=== PATIENT | female | born 2000 | race Caucasian/White ===

== ENCOUNTER 2023-11-13 20:28 | Emergency (ER) | payer BC, MEDICAID ==
--- NOTE | 2023-11-13 20:37 | ERPHSYRPT ---
- History of Present Illness Time Seen by Provider: 11/13/23 20:37 Source: patient, family Exam Limitations: no limitations Physician History: pt has fever today with aches and feeling weak and has cough but not SObreath no CP. No vag DC no urinary symptoms or abd pain. . chest clear ht reg without M . Abd soft nontender without peritoneal signs or masses. No N or V, but not drinking like she should and a little dehydrated feeling per pt. family member / friend is here as an independent source of the hx. discussed risk/benefit of testing with pt/family and she wishes to proceed with covid, rsv, strep, Flu testing and IVF. these are ordered. results discussed. discussed risk/benefit of tamiflu with family and pt and they wish to proced. Timing/Duration: today Severity: moderate Associated Symptoms: cough, loss of appetite Allergies/Adverse Reactions: No Known Drug Allergies Allergy (Unverified 11/13/23 20:59) Hx Tetanus, Diphtheria Vaccination/Date Given: Yes - Review of Systems Constitutional: Fever, No Chills Eyes: No Symptoms Ears, Nose, & Throat: No Symptoms Respiratory: Cough, No Dyspnea Cardiac: No Chest Pain, No Edema, No Syncope Abdominal/Gastrointestinal: No Abdominal Pain, No Nausea, No Vomiting, No Diarrhea Genitourinary Symptoms: No Dysuria Musculoskeletal: No Back Pain, No Neck Pain Skin: No Rash Neurological: No Dizziness, No Focal Weakness, No Sensory Changes Psychological: No Symptoms Endocrine: No Symptoms Hematologic/Lymphatic: No Symptoms Immunological/Allergic: No Symptoms All Other Systems: Reviewed and Negative - Past Medical History Pertinent Past Medical History: No - Past Surgical History Past Surgical History: No - Social History Smoking Status: Never smoker Exposure to second hand smoke: No Drug Use: none Patient Lives Alone: No - Nursing Vital Signs Nursing Vital Signs: Initial Vital Signs Temperature 102.0 F 11/13/23 20:28 Pulse Rate 125 H 11/13/23 20:28 Respiratory Rate 20 11/13/23 20:28 Blood Pressure 119/62 11/13/23 20:28 O2 Sat by Pulse Oximetry 95 11/13/23 20:28 Pain Scale Pain Intensity 5 - Physical Exam General Appearance: no apparent distress, alert Eye Exam: PERRL/EOMI, eyes nml inspection Ears, Nose, Throat Exam: normal ENT inspection, TMs normal, pharynx normal, moist mucous membranes Neck Exam: normal inspection, non-tender, supple, full range of motion Respiratory Exam: normal breath sounds, lungs clear, No respiratory distress Cardiovascular Exam: regular rate/rhythm, normal heart sounds, normal peripheral pulses Gastrointestinal/Abdomen Exam: soft, normal bowel sounds, No tenderness, No distention, No mass, No guarding Pelvic Exam: deferred Rectal Exam: deferred Back Exam: normal inspection, normal range of motion, No CVA tenderness, No vertebral tenderness Extremity Exam: normal inspection, normal range of motion, pelvis stable Neurologic Exam: alert, oriented x 3, cooperative, normal mood/affect, nml cerebellar function, nml station & gait, sensation nml, No motor deficits Skin Exam: normal color, warm, dry, No rash Lymphatic Exam: No adenopathy SpO2 Interpretation: normal SpO2: 95 O2 Delivery: Room Air - Course Nursing assessment & vital signs reviewed: Yes Ordered Tests: Active Orders 24 hr Category Date Time Status IV Insertion STAT Care 11/13/23 21:04 Active Medication Summary Discontinued Medications Generic Name Dose Route Start Last Admin Trade Name Ruth PRN Reason Stop Dose Admin Sodium Chloride 1,000 mls @ 999 mls/hr 11/13/23 21:04 11/13/23 22:28 Sodium Chloride 0.9% 1000 Ml IV 11/13/23 22:04 Infused .Q1H1M STA Infusion Sodium Chloride Confirm 11/13/23 21:17 Sodium Chloride 0.9% 1000 Ml Administered 11/13/23 21:18 Dose 1,000 mls @ ud .ROUTE .STK-MED ONE Oseltamivir Phosphate 75 mg 11/13/23 22:21 11/13/23 22:28 Oseltamivir 75 Mg Cap PO 11/13/23 22:22 75 mg STAT ONE Administration Oseltamivir Phosphate Confirm 11/13/23 22:26 Oseltamivir 75 Mg Cap Administered 11/13/23 22:27 Dose 75 mg PO .STK-MED ONE Lab/Rad Data: Laboratory Results 11/13/23 Range/Units 21:20 Influenza Type A Ag POSITIVE (NEGATIVE) Influenza Type B Ag NEGATIVE (NEGATIVE) RSV (PCR) NEGATIVE (NEGATIVE) SARS-CoV-2 (PCR) NEGATIVE (NEGATIVE) Group A Strep Antibody NOT DETECTED (NEGATIVE) - Progress Progress: improved, re-examined Progress Note: 11/13/23 23:49 pt feels well enough to go home and prefers that rather than obs in hospital and has the capacity to make this choice. Counseled pt/family regarding: lab results, diagnosis, need for follow-up Medical Desision Making - Independent Historian Additional History obtained from: Relative/friend - Discussion of managment Reviewed:: Test results, Need for additional workup Agreed on:: Treatment plan, need for follow-up - Diagnostic Testing Diagnostic test were ordered, analyzed, and reviewed by me: Yes Radiological Interpretation: Reviewed by me - Risk of complications The pt has a mod risk of morbidity or mortality based on: Need for prescription drug management The pt has a high risk of morbidity or mortality based on: Decision regarding hospitilization or escalation of hosp level of care - Departure Departure Disposition: Home Clinical Impression: Influenza A Condition: Good Critical Care Time: No Referrals: BC ESCAMILLA, SET UP OPERATOR [Primary Care Provider] - Follow up/PCP as directed Instructions: Flu, Adult (DC), Flu, Adult ED Additional Instructions: followup with your DrBeatriz this week and also if your time off needs to be extended. return meantime if vomiting, short of breath, trouble swallowing, dizzy, or any other concerns. Prescriptions: Oseltamivir 75 mg [Tamiflu 75MG Capsule] 75 mg PO BID #10 cap
[2023-11-13 20:59] VITALS: TEMP 102
[2023-11-13] MEDS ORDERED: Sodium Chloride 0.9% 1000 ML 1,000 ML IV STA (21:04)
[2023-11-13] MEDS ORDERED: Sodium Chloride 0.9% 1000 ML 1,000 ML ONE (21:17)
[2023-11-13 21:48] LABS: Group A Strep NOT DETECTED (NEGATIVE)
[2023-11-13 21:59] LABS: INFLUENZA B NEGATIVE (NEGATIVE); RESPIRATORY SYNCTIAL VIRUS NEGATIVE (NEGATIVE); SARS-CoV-2 Xpert Express NEGATIVE (NEGATIVE)
[2023-11-13 22:01] LABS: INFLUENZA A POSITIVE (NEGATIVE)
[2023-11-13] MEDS ORDERED: Tamiflu 75MG Capsule PO ONE ×2 (22:21→22:26)
[2023-11-14 00:06] VITALS: BP 113/86; PULSE 110; RESP 22; O2SAT 98
== END 2023-11-14 00:08 | disposition home or self-care (01) ==
LOC: ED 20:28
DX: J10.1 Influenza due to other identified influenza virus with other respiratory manifestations (principal); R50.9 Fever, unspecified; M79.10 Myalgia, unspecified site; R53.1 Weakness; R05.9 Cough, unspecified
CPT/HCPCS: 0241U; 36000; 87651; 96360; 99284; A9270-GY